=== PATIENT | female | born 1985 | race African-American/Black ===

== ENCOUNTER → 2020-03-11 | Outpatient (CLI) | payer OTHER ==
[2014-12-24 12:58] VITALS: BP 148/85
[2020-03-11 15:37] LABS: HEMATOCRIT 35.6 % (36.0-47.0); HEMOGLOBIN 11.6 g/dL (12.0-15.5); RED BLOOD COUNT 4.3 x10^6/uL (3.50-5.40); RED CELL DISTRIBUTION WIDTH 13.9 % (11.5-14.5); WHITE BLOOD COUNT 7.5 x10^3/uL (4.0-11.0)
[2020-03-12 15:41] LABS: FREE T4 1.64 ng/dL (0.76-1.46); THYROID STIM HORMONE (TSH) < 0.007 uIU/mL (0.358-3.740)
[2020-03-12 16:07] LABS: RUBELLA IGG ANTIBODY 1.79 index (Immune >0.99)
== END | disposition home or self-care (01) ==
LOC: LAB 14:40
PROVIDERS: ATTEND Obstetrics & Gynecology
DX: Z34.91 Encounter for supervision of normal pregnancy, unspecified, first trimester (principal); Z3A.00 Weeks of gestation of pregnancy not specified
CPT/HCPCS: 36415; 84439; 84443; 85027; 86592; 86703; 86706; 86762; 86787; 86803; 86850; 86900; 86901; 87340

== ENCOUNTER → 2020-03-31 | Outpatient (CLI) | payer OTHER ==
[2014-12-24 12:58] VITALS: BP 148/85
--- NOTE | 2020-03-31 16:50 | RAD ---
First trimester OB ultrasound INDICATION: Size dates TECHNIQUE: Grayscale and M-mode spectral Doppler imaging of the gravid uterus was performed transabdominally. FINDINGS: Based on an LMP of 01/07/2020, gestational age by dates is 12 weeks 0 days with an estimated delivery date of October 13, 2020. Uterus measures 9.9 x 9.5 x 5.2 cm and is unremarkable. The cervix measures 4.4 cm. Single live intrauterine gestation with a heart rate of 155 beats per minutes is seen in cephalic presentation with low-lying posterior placenta. Based on crown-rump length of 6.4 cm, gestational age by ultrasound is 12 weeks 5 days with an estimated delivery date of October 08, 2020. No yolk sac is identified. There is a normal shape to the gestational sac and normal volume for the amniotic fluid. Right ovary measures 2.1 x 2.4 x 1.8 cm and demonstrates normal blood flow. The left ovary is not well seen. No pelvic free fluid. IMPRESSION: Single live intrauterine gestation with sonographic gestational age of 12 weeks 5 days and an estimated delivery date of 10/08/2020. The placenta is posterior and low-lying. Electronically signed by: Gavin Jorgensen MD (03/31/2020 4:47 PM) [id number]
== END ==
LOC: US 14:36
PROVIDERS: ATTEND Obstetrics & Gynecology
DX: Z34.91 Encounter for supervision of normal pregnancy, unspecified, first trimester (principal); Z3A.12 12 weeks gestation of pregnancy
CPT/HCPCS: 76801

== ENCOUNTER → 2020-05-28 | Outpatient (CLI) | payer OTHER ==
[2014-12-24 12:58] VITALS: BP 148/85
--- NOTE | 2020-05-28 16:55 | RAD ---
EXAM: Ultrasound OB Greater than 14 weeks INDICATION: Reason: SIZE AND DATES / Spl. Instructions: / History: TECHNIQUE: Real-time obstetrical ultrasound was performed with permanent freeze-frame documentation. COMPARISON: 03/31/2020 OB ultrasound FINDINGS: POSITION: Variable HEART RATE: 157 bpm SABINE: 15.8 cm PLACENTA: Posterior, low-lying. Provided images suggest a complete previa. CERVICAL LENGTH: 4.7 cm MATERNAL UTERUS: Unremarkable. MATERNAL ADNEXA: Unremarkable. AGE/DATES: Gestational Age by LMP: 21 weeks 0 days Gestation Age by US: 20 weeks 5 days EDC by LMP: October 08, 2020 EDC by US: October 10, 2020 WEIGHT: 381 grams +/- 56 grams PERCENTILE WEIGHT: Not estimated BIOMETRIC PARAMETERS: BPD: 4.9 cm corresponding with 20 weeks 5 days HC: 17.7 cm corresponding with 20 weeks 1 day AC: 15.4 cm corresponding with 20 weeks 4 days FL: 3.5 cm corresponding with 21 weeks 2 days ANATOMY: CARDIAC: Normal four chamber heart. Normal right and left ventricular outflow tracts. UMBILICAL CORD: Normal 3 vessel cord. Normal cord insertion. BRAIN: Unremarkable. NOSE/LIPS: Unremarkable. SPINE: Unremarkable. EXTREMITIES: Unremarkable. STOMACH: Unremarkable. KIDNEYS: Unremarkable. BLADDER: Unremarkable. IMPRESSION: Normal OB ultrasound demonstrating a single viable fetus in variable position. Posterior placenta, complete previa. Estimated gestational age of 20 weeks 5 days and EDC of October 10, 2020. Electronically signed by: Gavin Jorgensen MD (05/28/2020 4:52 PM) [id number]
== END | disposition home or self-care (01) ==
LOC: US 15:00
PROVIDERS: ATTEND Obstetrics & Gynecology
DX: Z34.92 Encounter for supervision of normal pregnancy, unspecified, second trimester (principal); Z3A.20 20 weeks gestation of pregnancy
CPT/HCPCS: 76805

== ENCOUNTER 2020-07-16 08:10 | Emergency (ER) | payer OTHER ==
[~2020-07-16] VITALS: Ht 162.6 cm; Wt 81.4 kg
[2020-07-16] MEDS ORDERED: IV NORMAL SALINE 1,000ML 1,000 ML IV SCH (08:33)
--- NOTE | 2020-07-16 08:33 | PHYS DOC ---
Past History Past Medical History: No Pertinent History Past Surgical History: No Surgical History Alcohol Use: None Drug Use: None General Adult EDM: Chief Complaint: NAUSEA/VOMITING/DIARRHEA HPI: HPI: Patient is a 35 year old female who presents for evaluation of worsening nausea over the past 24 hours and low appetite. Patient is approximately 6 months . Patient is a 3 para 2. Patient is tearful and concerned she may be dehydrated. Patient has some congestion and upper respiratory symptoms as well. 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 Patient has no related complaints including abdominal pain or spotting. Vital signs are stable and patient is not toxic appearing. Patient states she is been under a lot of stress and had poor appetite recently. She states she is having stress at her job and her son is giving her stress as well. Review of Systems: Review of Systems: Constitutional: Denies fever or chills Eyes: Denies change in visual acuity HENT: has nasal congestion no sore throat Respiratory: Denies cough or shortness of breath Cardiovascular: Denies chest pain or edema GI: Denies abdominal pain, has nausea, no vomiting or bloody stools : Denies dysuria Musculoskeletal: Denies back pain or joint pain Integument: Denies rash Neurologic: Denies headache, focal weakness or sensory changes Endocrine: Denies polyuria or polydipsia Lymphatic: Denies swollen glands Psychiatric: Denies depression has anxiety Allergies: Allergies: Allergies Coded Allergies Type Severity Reaction Last Updated Verified No Known Drug Allergies 07/16/20 No Physical Exam: PE: Constitutional: Well developed, well nourished, mild acute distress, non-toxic appearance, tearful. [] HENT: Normocephalic, atraumatic, bilateral external ears normal, oropharynx moist, no oral exudates, nose normal. [] Eyes: PERRL, EOMI, conjunctiva normal, no discharge. [] Neck: Normal range of motion, no tenderness, supple, no stridor. [] Cardiovascular:Heart rate regular rhythm, no murmur [] Lungs & Thorax: Bilateral breath sounds clear to auscultation [] Abdomen: Bowel sounds normal, gravid uterus, no tenderness. [] Skin: Warm, dry, no erythema, no rash. [] Back: No tenderness. [] Extremities: No tenderness, no cyanosis, ROM intact, no edema. [] Neurologic: Alert and oriented X 3, normal motor function, normal sensory function, no focal deficits noted. [] Psychologic: Affect abnormal, judgement normal, mood abnormal. [] Current Patient Data: Labs: Laboratory Tests Test 07/16/20 08:45 07/16/20 08:54 Urine Collection Type Unknown Urine Color Yellow Urine Clarity Hazy Urine pH 6.5 Urine Specific [place] >=1.030 Urine Protein Neg Urine Glucose (UA) Neg mg/dL Urine Ketones (Stick) Neg mg/dL Urine Blood Neg Urine Nitrite Neg Urine Bilirubin Neg Urine Urobilinogen Dipstick 0.2 mg/dL Urine Leukocyte Esterase Neg Urine RBC 1-2 /HPF Urine WBC 1-4 /HPF Urine Squamous Epithelial Cells Few /LPF Urine Bacteria Mod /HPF Urine Mucus Slight /LPF Urine Yeast Present /HPF White Blood Count 7.2 x10^3/uL Red Blood Count 4.12 x10^6/uL Hemoglobin 11.0 g/dL Hematocrit 34.5 % Mean Corpuscular Volume 84 fL Mean Corpuscular Hemoglobin 27 pg Mean Corpuscular Hemoglobin Concent 32 g/dL Red Cell Distribution Width 13.6 % Platelet Count 258 x10^3/uL Segmented Neutrophils % 68 % Lymphocytes % 21 % Monocytes % 8 % Eosinophils % 3 % Toxic Granulation Present Toxic Vacuolation Present Platelet Estimate Adequate Large Platelets Present Polychromasia Present Maternal Serum HCG Beta Subunit 1683 mIU/mL Sodium Level 136 mmol/L Potassium Level 4.0 mmol/L Chloride Level 103 mmol/L Carbon Dioxide Level 24 mmol/L Anion Gap 9 Blood Urea Nitrogen 9 mg/dL Creatinine 0.6 mg/dL Estimated GFR (Cockcroft-Gault) 139.3 BUN/Creatinine Ratio 15 Glucose Level 88 mg/dL Calcium Level 9.0 mg/dL Total Bilirubin 0.2 mg/dL Aspartate Amino Transf (AST/SGOT) 14 U/L Alanine Aminotransferase (ALT/SGPT) 14 U/L Alkaline Phosphatase 66 U/L Total Protein 7.3 g/dL Albumin 3.0 g/dL Albumin/Globulin Ratio 0.7 Current Medications Medications (Trade) Dose Ordered Sig/[place] Route PRN Reason Start Time Stop Time Status Last Admin Dose Admin Sodium Chloride 1,000 ml @ 1,000 mls/hr Q1H IV 07/16/20 08:33 07/16/20 09:32 DC 07/16/20 09:01 EKG: EKG: [] Radiology/Procedures: Radiology/Procedures: [] Heart Score: Risk Factors: Risk Factors: DM, Current or recent (<one month) smoker, HTN, HLP, family history of CAD, obesity. Risk Scores: Score 0 - 3: 2.5% MACE over next 6 weeks - Discharge Home Score 4 - 6: 20.3% MACE over next 6 weeks - Admit for Clinical Observation Score 7 - 10: 72.7% MACE over next 6 weeks - Early Invasive Strategies Course & Med Decision Making: Course & Med Decision Making Pertinent Labs and Imaging studies reviewed. (See chart for details) [] Dragon Disclaimer: Dragon Disclaimer: This electronic medical record was generated, in whole or in part, using a voice recognition dictation system. 0913 FHT's 150s, pt stable and feeling better at this time. 1033 stable, resting comfortably at this time. Nausea now resolved. Liter of IV fluids given. Some mild dehydration noted on her labs but nothing excessive. Patient has nausea medication at home. 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 Labs are stable. Patient ready for discharge and work note for today off given Departure Departure: Impression: Primary Impression: Dehydration Additional Impressions: related condition in second trimester Stress Disposition: 01 DC HOME SELF CARE/HOMELESS Condition: STABLE Referrals: [facility] (PCP) Patient Instructions: ABCs of , Dehydration, Adult Additional Instructions: Call and see your [employer]OLLEY [employer]ANER right away in follow-up. Your labs are stable but did show some mild dehydration. Rest and try to decrease stress. Drink plenty fluids MARJ DALEY DO Jul 16, 2020 08:33
[2020-07-16 09:30] LABS: CREATININE 0.6 mg/dL (0.6-1.0); GFR 139.3
[2020-07-16 09:35] LABS: ALBUMIN/GLOBULIN RATIO 0.7 (1.0-1.7); TOTAL BILIRUBIN 0.2 mg/dL (0.2-1.0); TOTAL PROTEIN 7.3 g/dL (6.4-8.2)
[2020-07-16 09:48] LABS: HEMATOCRIT 34.5 % (36.0-47.0); MEAN CORPUSCULAR HEMOGLOBIN 27 pg (25-35); MEAN CORPUSCULAR HGB CONC 32 g/dL (31-37); MEAN CORPUSCULAR VOLUME 84 fL (79-100); PLATELET COUNT 258 x10^3/uL (140-400); RED BLOOD COUNT 4.12 x10^6/uL (3.50-5.40); RED CELL DISTRIBUTION WIDTH 13.6 % (11.5-14.5); WHITE BLOOD COUNT 7.2 x10^3/uL (4.0-11.0)
[2020-07-16 09:58] LABS: BACTERIA,URINE MOD /HPF (0-FEW); BILIRUBIN,URINE NEG (NEG); CLARITY,URINE HAZY; COLOR,URINE YELLOW; GLUCOSE,URINE NEG (NEG); NITRITE,URINE NEG (NEG); SQUAMOUS EPITHELIAL CELL,UR FEW /LPF; UROBILINOGEN,URINE 0.2 mg/dL (0.2 mg/dL)
[2020-07-16 09:59] LABS: YEAST,URINE PRESENT /HPF
[2020-07-16 10:22] LABS: % EOS 3 % (0-5); % LYMPHS 21 % (24-48); % MONOS 8 % (0-10); % SEGS 68 % (35-66)
[2020-07-16 10:23] LABS: PLT ESTIMATE ADEQUATE (ADEQUATE)
[2020-07-16 10:24] LABS: POLYCHROMASIA PRESENT; TOXIC VACUOLATION PRESENT
[2020-07-16 10:25] LABS: TOXIC GRANULATION PRESENT
[2020-07-16 10:30] VITALS: BP 121/78
== END 2020-07-16 10:50 | disposition home or self-care (01) ==
LOC: ER 08:10
DX: O99.282 Endocrine, nutritional and metabolic diseases complicating pregnancy, second trimester (principal); E86.0 Dehydration; O99.342 Other mental disorders complicating pregnancy, second trimester; F43.0 Acute stress reaction; Z3A.24 24 weeks gestation of pregnancy
CPT/HCPCS: 36415; 80053; 81001; 84702; 85007; 85025; 87086; 96360; 99283; J7030

== ENCOUNTER → 2020-08-07 | Outpatient (CLI) | payer OTHER ==
[2020-07-16 10:30] VITALS: BP 121/78
[2020-08-07 11:35] LABS: BASO % 0 % (0-3); EOS # 0.1 x10^3/uL (0.0-0.7); EOS % 1 % (0-3); HEMATOCRIT 33.6 % (36.0-47.0); HEMOGLOBIN 10.7 g/dL (12.0-15.5); LYMPH # 1.7 x10^3/uL (1.0-4.8); LYMPH % 26 % (24-48); MEAN CORPUSCULAR HEMOGLOBIN 27 pg (25-35); MEAN CORPUSCULAR HGB CONC 32 g/dL (31-37); MEAN CORPUSCULAR VOLUME 85 fL (79-100); MONO # 0.7 x10^3/uL (0.0-1.1); MONO % 11 % (0-9); NEUT # 4.2 x10^3uL (1.8-7.7); NEUT % 62 % (31-73); PLATELET COUNT 275 x10^3/uL (140-400); RED BLOOD COUNT 3.97 x10^6/uL (3.50-5.40); RED CELL DISTRIBUTION WIDTH 13.8 % (11.5-14.5); WHITE BLOOD COUNT 6.7 x10^3/uL (4.0-11.0)
[2020-08-07 11:51] LABS: ALBUMIN 2.9 g/dL (3.4-5.0); ALBUMIN/GLOBULIN RATIO 0.7 (1.0-1.7); CALCIUM 8.1 mg/dL (8.5-10.1); CREATININE 0.6 mg/dL (0.6-1.0); GFR 139.3; POTASSIUM 3.5 mmol/L (3.5-5.1); TOTAL BILIRUBIN 0.2 mg/dL (0.2-1.0); TOTAL PROTEIN 7.1 g/dL (6.4-8.2)
== END ==
LOC: LAB 08:29
PROVIDERS: ATTEND Obstetrics & Gynecology
DX: Z34.93 Encounter for supervision of normal pregnancy, unspecified, third trimester (principal); Z3A.30 30 weeks gestation of pregnancy
CPT/HCPCS: 36415; 80053; 83615; 84550; 85025

== ENCOUNTER → 2020-08-13 | Outpatient (CLI) | payer OTHER ==
[2020-07-16 10:30] VITALS: BP 121/78
--- NOTE | 2020-08-13 17:35 | RAD ---
Examination: OB LIMITED History: Reason: F/U PLACENTA PREVIA Comparison/Correlation: 05/28/2020 OB ultrasonogram Findings: Single living intrauterine gestation is present with heart rate of 145 bpm. movement is identified. Posterior wall placenta is present with placenta previa evident. Amniotic fluid index is 15.3 cm. Maternal cervical length is 4.4 cm. Cervix is closed. Impression: Complete placenta previa again seen due to the inferior tip of the placenta. Mild improvement compared to the previous exam is suggested. Electronically signed by: Lg Banda MD (08/13/2020 5:32 PM) [facility]INCESS
== END ==
LOC: US 12:41
PROVIDERS: ATTEND Obstetrics & Gynecology
DX: O44.03 Complete placenta previa NOS or without hemorrhage, third trimester (principal)
CPT/HCPCS: 76815

== ENCOUNTER → 2020-09-18 | Outpatient (CLI) | payer OTHER ==
--- NOTE | 2020-09-18 13:44 | RAD ---
US OB LIMITED Clinical Indication: Reason: EVAL FOR PLACENTA PREVIA; PREVIOUSLY SCANNED MULTIPLE TIMES Comparison: Limited OB ultrasound August 13, 2020. TECHNIQUE: Real-time ultrasound imaging of the gravid uterus is performed using transabdominal window . Findings: Single live intrauterine gestation, estimated heart rate 153 bpm. The cervix length is 3.9 cm. The cervix is closed. Placenta previa is redemonstrated. Posterior place nta. Amniotic fluid is appropriate. The amniotic fluid index is 9.4 cm. IMPRESSION: Placenta previa is still present. Electronically signed by: Dimitry Jain MD (09/18/2020 1:42 PM) [id number]
== END ==
LOC: US 12:44
PROVIDERS: ATTEND Obstetrics & Gynecology
DX: O44.03 Complete placenta previa NOS or without hemorrhage, third trimester (principal); Z3A.00 Weeks of gestation of pregnancy not specified
CPT/HCPCS: 76815